=== PATIENT | female | born 1955 | race Caucasian/White ===

== ENCOUNTER 2017-04-29 08:47 | Emergency (ER) | payer MEDICAID ==
[2017-04-29 09:06] VITALS: BP 172/98
[2017-04-29] MEDS ORDERED: Meclizine 25 MG Tab PO ONE (09:47)
--- NOTE | 2017-04-29 09:51 | EDM.PDOC ---
ED HPI GENERAL MEDICAL PROBLEM - General Chief Complaint: General Stated Complaint: dizzy Time Seen by Provider: 04/29/17 09:40 Source of Information: Reports: Patient, Family, RN Notes Reviewed History Limitations: Reports: No Limitations - History of Present Illness INITIAL COMMENTS - FREE TEXT/NARRATIVE: 61-year-old female presents emergency department today complaint of dizziness, she states the dizziness started today it is intermittent if she lays flat without moving her head she is not dizzy however any head movement or ambulation produces dizziness and she feels unsteady gait. Denies any recent illness fevers does have a history of vertigo in the past that lasted about a week has not tried any treatment - Related Data Allergies Allergy/AdvReac Type Severity Reaction Status Date / Time No Known Allergies Allergy Verified 04/29/17 09:17 Home Meds: Home Meds Calcium Carbonate/Vitamin D3 [Calcium 600 + Vit D 200] 1 each PO BID 03/14/15 [ History] Cholecalciferol (Vitamin D3) [Vitamin D3] 5,000 unit PO DAILY 03/14/15 [History] Levothyroxine Sodium [Levothyroxine Sodium] 25 mcg PO DAILY 03/14/15 [History] Simvastatin [Simvastatin] 20 mg PO DAILY 03/14/15 [History] Past Medical History Cardiovascular History: Reports: High Cholesterol Gastrointestinal History: Reports: [employer] History: Reports: Neurological History: Reports: Migraines Endocrine/Metabolic History: Reports: Hypothyroidism - Infectious Disease History Infectious Disease History: Reports: Measles - Past Surgical History HEENT Surgical History: Reports: Other (See Below) Other HEENT Surgeries/Procedures: ear drum repair GI Surgical History: Reports: Colonoscopy Female Surgical History: Reports: Tubal Ligation Social & Family History - Tobacco Use Smoking Status *Q: Never Smoker Second Hand Smoke Exposure: Yes - Caffeine Use Caffeine Use: Reports: Soda - Recreational Drug Use Recreational Drug Use: No ED ROS GENERAL - Review of Systems Review Of Systems: See Below Constitutional: Reports: Other (Shaking feeling) HEENT: Reports: Vertigo Respiratory: Reports: No Symptoms Cardiovascular: Reports: No Symptoms GI/Abdominal: Reports: Nausea. Denies: Vomiting : Reports: No Symptoms Musculoskeletal: Reports: No Symptoms Skin: Reports: No Symptoms Neurological: Reports: Dizziness ED EXAM, GENERAL - Physical Exam Exam: See Below Free Text/Narrative:: General: Female, not in any distress, alert and oriented x3 HEENT: head is atraumatic normocephalic, eyes pupils equal round reactive to light, sclera clear no conjunctivitis appreciated, extraocular eye movements intact. Ears tympanic membranes clear and cisneros landmarks and light reflex are present bilaterally canals are clear. Nose no septal deviation, nares are clear, no blood present. Mouth mucosa is moist and pink no erythema or exudate noted in soft palate, tongue is midline uvula is midline, dentition is intact. Neck: Supple no thyromegaly no tracheal deviation. Nodes: Cervical nodes subclavicular nodes nontender no palpable lymphadenopathy noted. Lungs: clear to auscultation bilaterally with symmetrical respirations, no adventitious noise appreciated. CV: Regular rate and rhythm S1 and S2 appreciated no murmurs rubs or gallops noted. Abdomen: Soft, nontender, no palpable masses or organomegaly appreciated, no distention no guarding bowel sounds are present,. Neuro: Cranial nerves II through XII grossly intact, cover uncover test negative , test of skew negative Skin: Warm and dry, intact Extremities: No lower extremity edema appreciated, Course - Vital Signs Last Recorded V/S: Last Vital Signs Temp 96.3 F 04/29/17 10:29 Pulse 79 04/29/17 10:29 Resp 16 04/29/17 09:13 BP 172/98 H 04/29/17 10:29 Pulse Ox 96 04/29/17 10:29 - Orders/Labs/Meds Orders: Active Orders 24 hr Category Date Time Status EKG Documentation Completion [RC] ASDIRECTED Care 04/29/17 08:58 Active CULTURE URINE [RM] Urgent Lab 04/29/17 11:03 Ordered EKG 12 Lead [EK] Stat Ther 04/29/17 08:58 Ordered Labs: Laboratory Tests 04/29/17 04/29/17 04/29/17 Range/Units 09:59 09:59 10:07 WBC 8.6 (4.5-11.0) K/uL RBC 4.88 (3.30-5.50) M/uL Hgb 14.1 (12.0-15.0) g/dL Hct 44.0 (36.0-48.0) % MCV 90 (80-98) fL MCH 29 (27-31) pg MCHC 32 (32-36) % Plt Count 324 (150-400) K/uL Neut % (Auto) 67 H (36-66) % Lymph % (Auto) 23 L (24-44) % [place] % (Auto) 7 H (2-6) % Eos % (Auto) 3 (2-4) % Baso % (Auto) 0 (0-1) % Sodium 140 (140-148) mmol/L Potassium 4.3 (3.6-5.2) mmol/L Chloride 104 (100-108) mmol/L Carbon Dioxide 27 (21-32) mmol/L Anion Gap 8.7 (5.0-14.0) mmol/L BUN 16 (7-18) mg/dL Creatinine 0.8 (0.6-1.0) mg/dL Est Cr Clr Drug Dosing 68.26 mL/min Estimated GFR (MDRD) > 60 (>60) Glucose 110 H (74-106) mg/dL Calcium 9.0 (8.5-10.1) mg/dL Total Bilirubin 0.4 (0.2-1.0) mg/dL AST 16 (15-37) U/L ALT 24 (12-78) U/L Alkaline Phosphatase 75 (46-116) U/L Total Protein 7.4 (6.4-8.2) g/dL Albumin 3.8 (3.4-5.0) g/dL Globulin 3.6 H (2.3-3.5) g/dL Albumin/Globulin Ratio 1.1 L (1.2-2.2) Urine Color Yellow Urine Appearance Clear Urine pH 6.0 (4.5-8.0) Ur Specific [place] 1.010 (1.008-1.030) Urine Protein Negative (NEGATIVE) mg/dL Urine Glucose (UA) Normal (NEGATIVE) mg/dL Urine Ketones Negative (NEGATIVE) mg/dL Urine Occult Blood Negative (NEGATIVE) Urine Nitrite Negative (NEGATIVE) Urine Bilirubin Negative (NEGATIVE) Urine Urobilinogen Normal (NORMAL) mg/dL Ur Leukocyte Esterase Small (NEGATIVE) Urine RBC 0-5 (0-5) Urine WBC 5-10 H (0-5) Ur Epithelial Cells Few Amorphous Sediment Not seen Urine Bacteria Few Urine Mucus Not seen Meds: Medications Discontinued Medications Generic Name Dose Route Start Last Admin Trade Name Freq PRN Reason Stop Dose Admin Meclizine HCl 25 mg 04/29/17 09:47 04/29/17 09:55 Antivert PO 04/29/17 09:48 25 mg ONETIME ONE Administration Departure - Departure Time of Disposition: 11:09 Disposition: Home, Self-Care 01 Condition: Good Clinical Impression: Dizziness - Discharge Information Referrals: Deepthi Davis PA [Primary Care Provider] - Forms: ED Department Discharge Additional Instructions: Use meclizine as needed help control symptoms, Please followup with your primary care provider in 3-5 days if not better, please call return to the emergency department with worsening of symptoms. - My Orders Last 24 Hours: My Active Orders 04/29/17 08:58 EKG Documentation Completion [RC] ASDIRECTED EKG 12 Lead [EK] Stat 04/29/17 11:03 CULTURE URINE [RM] Urgent - Assessment/Plan Last 24 Hours: My Active Orders 04/29/17 08:58 EKG Documentation Completion [RC] ASDIRECTED EKG 12 Lead [EK] Stat 04/29/17 11:03 CULTURE URINE [RM] Urgent Plan: Assessment Acuity = acute Site and laterality = vertigo Etiology = unclear etiology Manifestations = none Location of injury = Home Lab values = CBC, CMP, unremarkable urine does show 5-10 WBCs consistent with pyuria of unclear significance urine cultures pending EKG demonstrates sinus rhythm no significant ST elevations or depressions Plan I did review lab work EKG urinalysis results with her, she had good improvement with meclizine provided prescription written for 1 tablet by mouth 3 times a day when necessary total #50 Patient was in agreement with the plan all questions were answered, they were instructed to return to the emergency department or call for worsening symptoms. This note was dictated using [employer] voice recognition software please call with any questions.
== END 2017-04-29 11:33 | disposition home or self-care (01) ==
LOC: JP.ED 08:47
DX: R42 Dizziness and giddiness (principal); E78.00 Pure hypercholesterolemia, unspecified; E03.9 Hypothyroidism, unspecified; Z79.899 Other long term (current) drug therapy; Z77.22 Contact with and (suspected) exposure to environmental tobacco smoke (acute) (chronic)
CPT/HCPCS: 36415; 80053; 81001; 85025; 87086; 93005; 99284; A9270

== ENCOUNTER 2022-05-02 23:38 | Emergency (ER) | payer MEDICARE, BC ==
[2022-05-03] MEDS ORDERED: Diltiazem 25 MG/5 ML SDV IVPUSH ONE (00:01)
[2022-05-03 00:33] VITALS: BP 118/71; PULSE 111
[2022-05-03 01:00] LABS: ESTIMATED GFR 70 mL/min (>60); TROPONIN I HIGH SENSITIVITY 11.8 pg/mL (<=60.3)
== END 2022-05-03 02:15 | disposition home or self-care (01) ==
LOC: JP.ED 23:38
DX: I48.0 Paroxysmal atrial fibrillation (principal); E78.00 Pure hypercholesterolemia, unspecified; E03.9 Hypothyroidism, unspecified; Z79.899 Other long term (current) drug therapy
CPT/HCPCS: 36415; 80053; 84443; 84484; 85025; 85379; 93005; 96374; 99285; J3490

== ENCOUNTER 2022-05-05 19:59 | Emergency (ER) | payer MEDICARE, BC ==
[2022-05-05] MEDS ORDERED: Metoprolol Succinate 25 MG Tab.ER PO ONE (20:42)
[2022-05-05 20:50] VITALS: BP 136/75
[2022-05-05 20:57] VITALS: PULSE 88
== END 2022-05-05 21:24 | disposition home or self-care (01) ==
LOC: JP.ED 19:59
DX: R00.2 Palpitations (principal); I48.91 Unspecified atrial fibrillation; E78.00 Pure hypercholesterolemia, unspecified; K21.9 Gastro-esophageal reflux disease without esophagitis; Z79.899 Other long term (current) drug therapy
CPT/HCPCS: 93005; 99284; A9270

== ENCOUNTER 2023-06-11 10:44 | Emergency (ER) | payer MEDICARE, OTHER ==
[2023-06-11 10:58] VITALS: BP 122/82; PULSE 93
== END 2023-06-11 11:49 | disposition home or self-care (01) ==
LOC: JP.ED 10:44
DX: I49.1 Atrial premature depolarization (principal); E78.00 Pure hypercholesterolemia, unspecified; E03.9 Hypothyroidism, unspecified; Z79.899 Other long term (current) drug therapy
CPT/HCPCS: 99284